=== PATIENT | female | born 1950 ===

== ENCOUNTER 2019-09-29 05:43 | Day surgery (SDC) | payer OTHER ==
[~2019-09-29 05:43] MED LIST: ACID REDUCER 1150 MG PO; COZAAR100 MG PO; GLIPIZIDE XL10 MG PO; HUMULIN 70100 UNIT/1; HUMULIN N100 UNIT/2 SQ; JANUVIA100 MG PO; METFORMIN HCL1000 M2 PO; VERELAN240 MG PO
== END 2019-09-29 17:20 | disposition home or self-care (01) ==
LOC: CIR.AMB 05:43
DX: M65.842 Other synovitis and tenosynovitis, left hand (principal)